=== PATIENT | male | born 1980 ===

== ENCOUNTER 2016-11-25 16:58 | Inpatient (IN) ==
[2016-11-25] MEDS ORDERED: ONDANSETRON 4 MG/2 ML VIAL IV PRN ×2 (17:12→20:11)
[2016-11-25] MEDS ORDERED: PANTOPRAZOLE 40 MG VIAL IV STA (17:12)
--- NOTE | 2016-11-25 17:16 | Emergency Department Note ---
Arrival - Arrival Chief Complaint: Abdominal / Flank Pain ED Nursing Triage Note: c/o abd pain for months. pt had acute eve Mode of Arrival: Stretcher Limitations: No Limitations Source: Patient, RN Notes Reviewed Time Seen by Provider: 11/25/16 17:07 - History of Present Illness HPI Narrative: Patient is a 35-year-old male who is seen today complaining of 6 months of left upper quadrant abdominal pain. Patient denies any nausea vomiting or diarrhea. Last bowel movement was yesterday. Patient denies any blood in stool. He admits to drinking heavily until the last several weeks. Patient denies any surgery. He states that prior to quitting alcohol he was drinking at least 2 pints per day of whiskey. Patient denies any dysuria or urinary frequency. There is no history of hematuria. Nothing makes the pain better or worse. Onset (ago): month(s) (6) Consistency: constant Severity: mild Allergies/Adverse Reactions: Allergies Allergy/AdvReac Type Severity Reaction Status Date / Time No Known Allergies Allergy Verified 05/11/16 06:24 Home Medications: Home Medications Medication Instructions Recorded Confirmed Type Carvedilol [Coreg] 12.5 mg PO BID #60 tablet 04/23/16 11/25/16 Rx Review of System - Review of System 12 point system: reviewed and no additional remarkable complaints except as stated - Review of System Constitutional: Absent: chills, fever Gastrointestinal: Present: abdominal pain. Absent: nausea, vomiting, diarrhea Medical,Surgical,& Family Hx - Medical History Cardio: History of: Hypertension Other: History of: Skin Problems (keloid behind left ear) - Family History Family History: Reports;: Family Diabetes (parents), Family Hypertension ( parents), Family Stroke Denies;: Family Heart Disease - Social History Smoking Status: Smoker, status unknown Frequency of Alcohol Use: Occasionally Type of Drug Use: Marijuana Exam Vital Signs: Vital Signs Temperature 98.7 F 11/25/16 17:01 Pulse Rate 75 11/25/16 17:01 Respiratory Rate 18 11/25/16 17:01 Blood Pressure 141/81 11/25/16 17:01 O2 Sat by Pulse Oximetry 98 11/25/16 17:01 GENERAL: This is a well-nourished well-developed obese male in no apparent distress. VITAL SIGNS: Reviewed HEENT: Head is atraumatic and normocephalic. Pupils are equal round react to light. Extraocular movements are intact. Oropharynx is benign with moist mucous membranes. NECK: Neck is soft and supple without tenderness. There are no masses. There is no lymphadenopathy. LUNGS: Lungs are clear to auscultation. Chest rises symmetrically. There is no chest wall tenderness. CV: Heart is regular rate and rhythm without murmurs rubs or gallops. ABDOMEN: Abdomen is soft, minimal tenderness to palpation of the left upper quadrant without rebound or guarding. There are no abdominal abnormal masses palpated. There is no organomegaly. Bowel sounds are present and active. SKIN: Skin is warm and dry. No rash. EXTREMITIES: Patient has full range of motion without tenderness. There is no pedal edema. NEUROLOGIC: Awake alert and oriented 4. Cranial nerves II through XII are grossly intact. Motor is 5 over 5 in all extremities bilaterally. Course - Consultations Consultation #1: Discussed with Dr. Jose ERVIN. Patient will be admitted to his service. Time: 18:03 Results - Labs Lab Results: I have reviewed the patients labs Labs: Labs performed at [facility] and reviewed by me: CBC: WBCs 13,800, hemoglobin 11.8, hematocrit 34.5, platelet count 74,000 Chemistry: Sodium 143, potassium 2.8, chloride 104, CO2 26.8, BUN 21, creatinine 2.3, alk phos 110, SGOT 62 SGPT 26, glucose 105 Urine: Specific gravity 1.015, pH 6.0, Urine drug screen positive for marijuana - Diagnostic Findings Procedure: Ultrasound: report reviewed by me (Gallbladder ultrasound: Thickened gallbladder wall, sludge in the gallbladder.) Disposition Clinical Impression: Abdominal pain, left upper quadrant, Cholecystitis Case discussed with: patient Disposition: Still a Patient Condition: Stable
[2016-11-25] MEDS ORDERED: PANTOPRAZOLE 40 MG VIAL IV ONE (17:32)
[2016-11-25] MEDS ORDERED: ONDANSETRON 4 MG/2 ML VIAL ONE (17:32)
--- NOTE | 2016-11-25 18:29 | Ultrasound Report ---
Exam: US gallbladder Date:11/25/2016 5:23 PM Comparison:None Indication: Upper abdominal pain Real-time ultrasound images are captured and archived. There is gallbladder wall thickening at 7 mm. There is no cholelithiasis. There is mild sludge in the lumen of the gallbladder. There is a negative sonographic Raya sign. There is no abnormal biliary dilatation. Liver is mildly enlarged. There are mildly increased hepatic parenchymal echoes diffusely compatible with fatty infiltration of the liver. There is hepatopedal flow in the portal vein. The pancreas is obscured by bowel gas. There is no focal right renal abnormality. ORGAN MEASUREMENTS Liver Length:18.6 cm Gallbladder Wall Thickness: 7 mm CBD: 6 mm Right kidney: Length:11.9 cm Width:5.5 cm AP:5.6 cm Impression: Mild sludge in the gallbladder, though no classic shadowing gallstones. Negative sonographic Raya sign. Mild gallbladder wall thickening. Consider chronic cholecystitis. Mild hepatomegaly and mild hepatic steatosis PROCEDURE INTERPRETED AT [facility] DEPARTMENT OF RADIOLOGY Final Report Signed by: Dr. Elizabeth Michelle
[2016-11-25] MEDS ORDERED: ACETAMINOPHEN 325 MG TABLET PO PRN (20:11)
[2016-11-25] MEDS ORDERED: THIAMINE INJ 100 MG, FOLIC ACID INJ 1 MG, MAGNESIUM SULF INJ 2 GM, MULTIVITAMIN INJ 10 ... IV ONE (21:00)
[2016-11-25] MEDS: PIPERACILLIN/TAZOBACTAM 3,375 MG in SODIUM CHLORIDE 0.9% 100 ML IV SCH (21:29)
[2016-11-26] MEDS: PIPERACILLIN/TAZOBACTAM 3,375 MG in SODIUM CHLORIDE 0.9% 100 ML IV SCH ×2 (05:22→13:22)
[2016-11-26 08:10] LABS: Basophils % 0.3 % (0.0-0.8); Eosinophils # 0.3 10*3/uL (0.0-0.87); Eosinophils % 2.8 % (0.00-10.9); Hematocrit 32.6 VOL% (42.0-52.0); Hemoglobin 11.3 GM/DL (14.0-18.0); Immature Granulocytes % 0.6 %; Immature Granulocytes Absolute 0.06 #; Lymphocytes # 1.5 10*3/uL (1.4-4.0); Lymphocytes % 13.6 % (21.2-54.2); Mean Corpuscular HGB Conc 34.7 GM/DL (32-36); Mean Corpuscular Hemoglobin 38 PG (27-34); Mean Corpuscular Volume 110.9 FL (87-102); Monocytes # 0.8 10*3/uL (0.11-0.8); Monocytes % 7.1 % (1.7-12.7); Neutrophils # 8.2 10*3/uL (1.4-7.4); Neutrophils % 75.6 % (38.7-73.9); Red Blood Count 2.94 MC/CUMM (3.8-5.5); Red Cell Distribution Width 14.2 % (9.3-17.3); White Blood Count 10.8 T/CUMM (4-12)
[2016-11-26 08:15] LABS: Platelet Count 73 T/CUMM (130-400)
--- NOTE | 2016-11-26 08:25 | General Surg History&Physical ---
Assessment and Plan - Time spent with patient Time spent with patient: Greater than 30 minutes (1) Abdominal pain, left upper quadrant Status: Acute Assessment and plan: The etiology of this is unclear. I doubt that the symptoms are from his gallbladder. He has been diagnosed before with hepatosplenomegaly and I would suspect that he has had underlying cirrhosis possibly alcoholic hepatitis causing hepatosplenomegaly. We will consult GI for evaluation. Current Visit: Yes (2) Cholecystitis Status: Acute Assessment and plan: She had a thickened gallbladder with no gallstones. This thickening was not accompanied by pain or tenderness or Raya sign. This may be simply related to underlying liver disease such as cirrhosis or alcohol abuse. Current Visit: Yes (3) Jaundice Status: Acute Assessment and plan: He had a bilirubin of 3 on his lab work [facility]. We are rechecking this and rechecking his liver function tests. We will get an evaluation from gastroenterology. Current Visit: Yes History of Present Illness Chief complaint: Abdominal pain History of present illness: Mr. Renee is a 35 year old male Who 4 months has had a mild to moderate abdominal pain. He states that his pain sometimes in his right upper abdomen sometimes in the mid upper abdomen and sometimes in his left upper quadrant. It is been more in his left upper quadrant with anywhere else. He states that sometimes this left upper quadrant pain radiates into his left side. He has had some lower back pain but not a feeling that it is related to his abdominal pain. He says the pain is unaffected by eating and he has not had any changes in appetite or any nausea or vomiting. He had mild right upper quadrant pain which stopped a week or so ago he quit drinking. Prior to a week ago he states that he was drinking 2 pints of liquor a day. He has not had any fever or chills or jaundice. He apparently had an ultrasound showing thickened gallbladder with gallstones but no sonographic Raya sign. He had an enlarged liver and has been diagnosed with hepatosplenomegaly [facility] in the recent past. He has not been diagnosed in the past with cirrhosis. On his lab work at [facility] he had a bilirubin of 3 Home Medications Medication Instructions Recorded Confirmed Type Carvedilol [Coreg] 12.5 mg PO BID #60 tablet 04/23/16 11/25/16 Rx Allergies Allergy/AdvReac Type Severity Reaction Status Date / Time No Known Allergies Allergy Verified 05/11/16 06:24 Medical,Surgical,& Family Hx - Medical History Cardio: History of: Hypertension Other: History of: Skin Problems (keloid behind left ear) - Family History Family History: Reports;: Family Diabetes (parents), Family Hypertension ( parents), Family Stroke Denies;: Family Heart Disease - Social History Smoking Status: Smoker, status unknown Frequency of Alcohol Use: Frequently Type of Drug Use: Marijuana Exam - Constitutional Vitals: Period Temp Pulse Resp BP Sys/Kimbrough Pulse Ox Last 24 Hr 98.4 F-99.0 F 72-84 14-20 123-176/55-98 93-98 General appearance: no acute distress, morbidly obese - Eye Eye exam: Absent: scleral icterus Pupils: Present: GEOFF - ENT Mouth exam: Present: normal voice - Neck Neck exam: Present: trachea midline. Absent: tenderness - Respiratory Respiratory exam: Present: clear to auscultation bilaterally. Absent: accessory muscle use - Cardiovascular Cardiovascular exam: Present: RRR - GI/Abdominal GI/Abdominal exam: Present: normal bowel sounds, soft. Absent: distended, guarding, mass, Raya's sign, tenderness, rebound - Extremities Exam Extremities exam: Absent: edema - Neurological Exam Neurological exam: Present: alert, oriented X3. Absent: motor sensory deficit Speech: Present: normal - Skin Skin exam: Present: normal color - Constitutional Constitutional: Absent: anorexia, chills, fever(s), weight loss - EENT Nose, mouth and throat: Absent: dysphagia - Cardiovascular Cardiovascular: Absent: chest pain at rest, chest pain with activity, dyspnea, dyspnea on exertion, syncope - Respiratory Respiratory: Absent: dyspnea, hemoptysis, dyspnea on exertion - Gastrointestinal Gastrointestinal: Present: abdominal pain. Absent: bloating, cramping, diarrhea , hematemesis, hematochezia, nausea, vomiting, jaundice - Genitourinary Genitourinary: Absent: hematuria - Musculoskeletal Musculoskeletal: Present: back pain - Neurological Neurological: Absent: focal weakness, syncope - Endocrine Endocrine: Absent: polyuria Hematologic/Lymphatic: Absent: easy bleeding, easy bruising Results - Labs CBC & BMP: 11/26/16 07:44 Lab Results: I have reviewed the past 24 hour labs - Diagnostic Findings Procedure: Ultrasound: report reviewed by me
[2016-11-26 08:42] LABS: Albumin 3.2 G/DL (3.4-5.0); Bilirubin,Total 2.2 MG/DL (0.2-1.0); Osmolality,Calculated 285.1 MOS/KG (273-304); Total Protein 6.7 G/DL (6.4-8.3)
[2016-11-26 08:56] LABS: Platelet Estimate Decreased
[2016-11-26] MEDS: PANTOPRAZOLE 40 MG TABLET PO SCH ×2 (11:18→11:27)
--- NOTE | 2016-11-26 13:01 | Gastrointestinal Consult Note ---
Assessment and Plan (1) Alcoholic hepatitis without ascites Status: Acute Assessment and plan: This patient has a history of drinking 1/5 a day of whiskey for the last 2 years and given his liver parameters with a high MCV and low platelet level is likely given himself some low-grade cirrhosis versus severe alcoholic hepatitis. We will follow the patient up in 6 weeks in the office to see if any of these parameters have changed significantly. The good news is that he has discontinued drinking approximately 2 weeks ago and has not developed delirium tremens. If liver function tests looked the same or better than today he can certainly be discharged home tomorrow. I will write him a prescription for the pantoprazole to take but his main concern should be a low sodium diet and remaining abstinent from alcohol entirely. He does not require upper endoscopy at this time, it is LFTs remain elevated in 6 weeks will likely do a liver biopsy to confirm the diagnosis of alcoholic cirrhosis. I have cut back his Tylenol dosing to 500 mg 4 times daily. He does not require any antibiotics , or narcotics for his present condition. The patient uses occasional THC at home, he should be encouraged to lose some weight. 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 He is not an NSAID user. He is not having any nausea or vomiting or excessive pain. He does not require upper endoscopy. He has never had a bleeding/hematemesis episode. Current Visit: Yes (3) Jaundice Status: Acute Assessment and plan: Patient's bilirubin was up to 3.4 yesterday and is now down to 2.2. I suspect it will continue to drop over time provided he remains abstinent from alcohol intake. It may reach a plateau at some point given that he may have cirrhosis underlying. The patient was educated that he absolutely has to stop drinking at this point. Current Visit: Yes (4) Peripheral edema Status: Acute Assessment and plan: The patient has peripheral edema and is noted to have a BNP of 1222, given the fact that he likely does not have congestive heart failure and still concerned that he may have an alcoholic cardiomyopathy that is resulted in this number. He is advised to eat a low sodium diet and we will recheck his brain natruretic peptide level tomorrow, to see if this is improved. The patient does have hypertension that has been difficult to control, may consider low-dose diuretics (Maxide). Current Visit: Yes History of Present Illness Chief complaint: Alcoholic hepatitis with jaundice and gallbladder sludge, prob. gastritis History of present illness: Mr. Renee is a 35 year old male who was sent over by Morelia eSaman, nurse practitioner at the [facility] concerning his bilirubin which is found to be elevated as well as thickening of his gallbladder likely due to edema with his elevated BNP which have been noted to be as high as 1222 on at 2017--sludge was noted in the gallbladder but there was no evidence of ductal dilatation or stones per se. Gallbladder wall was thickened to 7 mm in our institution. He had a sonographic negative Raya sign. The patient states that he had discontinued drinking approximately 2 weeks ago but prior to that for the last 2 years he has been drinking about 1/5 of whiskey per day. Not surprisingly, his bilirubin has increased to 3.4 yesterday with an AST of 62 and ALT of 26 and an alkaline phosphatase of 110. These have improved with hydration over the evening time and his current bilirubin is 2.2 with an AST of 52, ALT of 23, and alkaline phosphatase of 112. He is having no right upper quadrant pain now but notes this was only low-grade yesterday. He is having some slight left upper quadrant pain possibly secondary to alcoholic gastritis. He does not have reflux symptoms. He does not have diarrhea or constipation. His creatinine was elevated today at 2.2, but his potassium is somewhat low at 3.0. He is positive for some THC. 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 Again this patient stopped drinking approximately 10-14 days ago and has not had any delirium tremens or other issues aside from the darkening of the urine which is improved at this point. He is worried about having had developed cirrhosis and his platelet level is 73 with an MCV that is elevated at 110.9 both consistent with cirrhosis. We will have to see how these improve over time the further from alcohol he gets. He has never vomited blood and he does not have a history of melena, constipation or diarrhea or rectal bleeding. He has never used IV drugs. His hepatitis A, B, and C levels at the [facility] wall negative from 11/25/16. Home Medications Medication Instructions Recorded Confirmed Type Carvedilol [Coreg] 12.5 mg PO BID #60 tablet 04/23/16 11/25/16 Rx Allergies Allergy/AdvReac Type Severity Reaction Status Date / Time No Known Allergies Allergy Verified 05/11/16 06:24 Medical,Surgical,& Family Hx - Medical History Cardio: History of: Hypertension Other: History of: Skin Problems (keloid behind left ear) - Family History Family History: Reports;: Family Diabetes (parents), Family Hypertension ( parents), Family Stroke Denies;: Family Heart Disease - Social History Smoking Status: Smoker, status unknown Frequency of Alcohol Use: Frequently Type of Drug Use: Marijuana Review of systems: Constitutional: Denies fever, chills, nausea, and vomiting Eyes: Denies dry eyes, but has had some scleral icterus HENT: Denies headaches Cardiovascular: Denies acute chest pain and claudication Respiratory: Denies shortness of breath, wheezing, and difficulty breathing, denies cough Gastrointestinal: As noted in the HPI Genitourinary: Denies dysuria and hematuria Neurologic: Denies vision loss, and loss of sensation Musculoskeletal: This patient has had some joint swelling, joint stiffness, and muscular weakness Psychiatric: Mild depression but no yosi symptoms Heme-Lymph: Denies easy bruising, lymph node enlargement or tenderness, night sweats, excessive bleeding Allergies-immunologic: Denies pruritus and rhinorrhea Exam - Constitutional Vitals: Period Temp Pulse Resp BP Sys/Kimbrough Pulse Ox Last 24 Hr 98.4 F-99.0 F 72-84 14-20 123-176/55-98 93-98 Exam: Constitutional: Well-developed, well-nourished, morbidly obese [place] male who is alert, and in no acute distress Head and face: Head: Normocephalic atraumatic Eyes: Conjunctiva without injection, no gross scleral icterus, pupils equal and round bilaterally Ears: Intact to conversation in both ears Nose: External appearance is normal, nares patent Mouth: Oral mucous membranes moist without erythema dentition noted to be without erosion Neck: Normal appearance, no masses or tenderness, trachea midline Thyroid: Gland midline and appropriate size for age Respiratory: Normal respiratory effort, clear to auscultation without wheezes, rhonchi or rales Cardiovascular: Regular rate and rhythm, normal S1, S2, the exam is without rubs, murmurs or gallops. Gastrointestinal: Very mild left upper quadrant tenderness to deep palpation, normal active bowel sounds, tone normal without rigidity or guarding , no masses present, no hepatomegaly, no spleen tip felt. No caput medusa, no gross ascites. No rectal exam obtained. Lymphatic: Neck without adenopathy, axilla without lymphadenopathy present Musculoskeletal: Right and left lower extremities with evidence of bilateral +1 edema Skin and subcutaneous tissue: No rashes or ulcerations noted, with slightly increased skin turgor, digits and nails without clubbing/cyanosis/deformities. Neurologic: The patient is grossly oriented to person place and time, cranial nerves show tongue movements are normal with normal tongue extrusion midline, light touch sensation is intact. Psychiatric: No hallucinations or delusions are present, does not appear depressed Results - Labs CBC & BMP: 11/26/16 07:44 11/26/16 07:44
[2016-11-26 13:23] LABS: % Iron Saturation 13.8 % (18-50); Bilirubin,Direct 1.09 MG/DL (0.0-0.20)
[2016-11-26] MEDS: ACETAMINOPHEN 500 MG TABLET PO PRN (22:19)
[2016-11-27 04:44] LABS: Albumin 3.1 G/DL (3.4-5.0); Bilirubin,Direct 0.93 MG/DL (0.0-0.20); Bilirubin,Indirect 1.4 MG/DL (0.0-1.0); Bilirubin,Total 2.3 MG/DL (0.2-1.0); Total Protein 6.4 G/DL (6.4-8.3)
[2016-11-27] MEDS: PANTOPRAZOLE 40 MG TABLET PO SCH (08:21)
--- NOTE | 2016-11-27 10:26 | General Surgery Progress Note ---
Assessment and Plan (1) Abdominal pain, left upper quadrant Status: Acute Assessment and plan: The etiology of this is unclear. I doubt that the symptoms are from his gallbladder. He has been diagnosed before with hepatosplenomegaly and I would suspect that he has had underlying cirrhosis possibly alcoholic hepatitis causing hepatosplenomegaly. We will consult GI for evaluation. 11/27: I appreciate the input from gastroenterology. This appears to be more of an underlying medical cause for his elevated liver function tests. I do not think that this represents acute cholecystitis. We will monitor his liver test and probably discharge him home tomorrow. If it is okay with GI we will discharge him home and have him follow-up with GI. I will be happy to see him again in the future. Current Visit: Yes (2) Cholecystitis Status: Acute Assessment and plan: She had a thickened gallbladder with no gallstones. This thickening was not accompanied by pain or tenderness or Raya sign. This may be simply related to underlying liver disease such as cirrhosis or alcohol abuse. Current Visit: Yes (3) Jaundice Status: Acute Assessment and plan: He had a bilirubin of 3 on his lab work [facility]. We are rechecking this and rechecking his liver function tests. We will get an evaluation from gastroenterology. Current Visit: Yes Subjective Patient reports: Present: feels better, pain is less. Absent: nausea, vomiting , fever Exam - Constitutional Vitals: Period Temp Pulse Resp BP Sys/Kimbrough Pulse Ox Last 24 Hr 97.1 F-99.4 F 62-88 16-20 108-168/60-102 93-96 General appearance: no acute distress - Head Head exam: Present: normocephalic - Eye Eye exam: Absent: scleral icterus - GI/Abdominal GI/Abdominal exam: Present: soft. Absent: distended, Raya's sign, tenderness , rebound Results - Labs CBC & BMP: 11/26/16 07:44 11/26/16 07:44 Lab Results: I have reviewed the past 24 hour labs Specialty Discharge - Follow Up or Referrals Follow up with: Jet Valero MD [Physician] - (CALL OFFICE ON MONDAY TO SCHEDULE A 6 WEEK FOLLOW UP APPOINTMENT)
--- NOTE | 2016-11-27 11:48 | Gastrointestinal Progress Note ---
Assessment and Plan (1) Alcoholic hepatitis without ascites Status: Acute Assessment and plan: This patient has a history of drinking 1/5 a day of whiskey for the last 2 years and given his liver parameters with a high MCV and low platelet level is likely given himself some low-grade cirrhosis versus severe alcoholic hepatitis. We will follow the patient up in 6 weeks in the office to see if any of these parameters have changed significantly. The good news is that he has discontinued drinking approximately 2 weeks ago and has not developed delirium tremens. If liver function tests looked the same or better than today he can certainly be discharged home tomorrow. I will write him a prescription for the pantoprazole to take but his main concern should be a low sodium diet and remaining abstinent from alcohol entirely. He does not require upper endoscopy at this time, it is LFTs remain elevated in 6 weeks will likely do a liver biopsy to confirm the diagnosis of alcoholic cirrhosis. I have cut back his Tylenol dosing to 500 mg 4 times daily. He does not require any antibiotics , or narcotics for his present condition. The patient uses occasional THC at home, he should be encouraged to lose some weight. 11/27/16--I am not really sure if we can provide any further help here in the hospital, the patient needs to maintain his sobriety and can follow-up in my office in 6 weeks to see how he is doing. He does appear to have a low-grade cirrhosis, and if these numbers do not change significantly in 6 weeks we can certainly consider doing a liver biopsy to confirm this and other tests to work this patient up. I will make him a follow-up appointment for that period of time. He can be discharged home at this time from my standpoint. Aside from maintaining sobriety the patient should observe a low-sodium low-fat diet to help him lose some weight. I have written prescriptions for Dyazide 37.5/25 mg 1 p.o. daily, K Dur 20 mEq 1 p.o. daily and pantoprazole 40 mg 1 p.o. every 30 minutes prior to suppertime each day as well. These been left in the front of the chart. If the patient's magnesium level is low tomorrow would consider adding slo-mag to his medication regimen. This is usually 64 mg twice daily. 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 He is not an NSAID user. He is not having any nausea or vomiting or excessive pain. He does not require upper endoscopy. He has never had a bleeding/hematemesis episode. 11/27/16--A prescription for pantoprazole has been left for the patient, he can take this at home to help with left upper quadrant tenderness. His probable alcoholic gastritis should get better as he continues to heal off the toxic irritant to his stomach. Current Visit: Yes (3) Jaundice Status: Acute Assessment and plan: Patient's bilirubin was up to 3.4 yesterday and is now down to 2.2. I suspect it will continue to drop over time provided he remains abstinent from alcohol intake. It may reach a plateau at some point given that he may have cirrhosis underlying. The patient was educated that he absolutely has to stop drinking at this point. 11/27/16--The patient's bilirubin has been stable with around 2.2-2.3, and I suspect this is his baseline. I doubt the removal of his gallbladder is going to help much, we need to see how much better his liver function tests will get with his sobriety, hence the follow-up in 6 weeks. Thank you for this interesting consult I will be signing off at this time. Current Visit: Yes (4) Peripheral edema Status: Acute Assessment and plan: The patient has peripheral edema and is noted to have a BNP of 1222, given the fact that he likely does not have congestive heart failure and still concerned that he may have an alcoholic cardiomyopathy that is resulted in this number. He is advised to eat a low sodium diet and we will recheck his brain natruretic peptide level tomorrow, to see if this is improved. The patient does have hypertension that has been difficult to control, may consider low-dose diuretics (Maxide). 11/27/16--given this patient's hypertension I am going to go ahead and start him on some Dyazide which should also help him out with his peripheral edema. His BNP is improved today. His alcoholic cardiomyopathy should improve as well with time. I have written him for some K Dur were which hopefully will supplement his potassium level which seems to be low. I am suspicious that he may have low magnesium as he is alcoholic. We will check this before he goes home tomorrow. If magnesium is low would suggest adding Slow-Mag 64 mg to his medication list twice daily. Current Visit: Yes Gastroenterology - PN: Subj Interval history: The patient is not available for examination as he is out wandering the hallways. I saw him earlier on the hallways and he appeared to be doing adequate at that time. Exam (Progress Note) - Constitutional Vitals: Period Temp Pulse Resp BP Sys/Kimbrough Pulse Ox Last 24 Hr 97.1 F-99.4 F 62-88 16-20 108-168/60-102 93-96 Exam: The patient is not available for examination but liver function tests look marginally better. He needs to maintain his abstinence and observe a low- sodium low-fat diet Results - Labs CBC & BMP: 11/26/16 07:44 11/26/16 07:44 Specialty Discharge - Follow Up or Referrals Follow up with: Jet Valero MD [Physician] - (CALL OFFICE ON MONDAY TO SCHEDULE A 6 WEEK FOLLOW UP APPOINTMENT)
[2016-11-27] MEDS: POTASSIUM CHLORIDE 20 MEQ TABLET PO SCH (12:19)
[2016-11-27] MEDS: TRIAMTERENE/HCTZ 37.5-25 MG CAPSULE PO SCH (12:19)
[2016-11-27] MEDS: ACETAMINOPHEN 500 MG TABLET PO PRN (21:09)
[2016-11-28 06:45] LABS: Calcium 7.6 MG/DL (8.5-10.1); Magnesium 1.4 MG/DL (1.8-2.4); Osmolality,Calculated 285.8 MOS/KG (273-304); Potassium 3.1 MMOL/L (3.5-5.1)
[2016-11-28 06:47] LABS: Albumin 3.3 G/DL (3.4-5.0); Bilirubin,Direct 0.86 MG/DL (0.0-0.20); Bilirubin,Indirect 1.1 MG/DL (0.0-1.0); Total Protein 6.9 G/DL (6.4-8.3)
[2016-11-28] MEDS: POTASSIUM CHLORIDE 20 MEQ TABLET PO SCH (08:33)
[2016-11-28] MEDS: TRIAMTERENE/HCTZ 37.5-25 MG CAPSULE PO SCH (08:34)
[2016-11-28] MEDS: ACETAMINOPHEN 500 MG TABLET PO PRN (08:34)
[2016-11-28] MEDS: PANTOPRAZOLE 40 MG TABLET PO SCH (08:34)
--- NOTE | 2016-11-28 09:16 | Discharge Summary ---
Hospital Course - Hospital Course Hospital Course: Patient is a 35-year-old male admitted with abdominal pain with elevated bilirubin for possible cholecystitis from [facility] referral. After evaluation, it was determined the patient had alcoholic hepatitis. Gastroenterology consultation was obtained and input appreciated. Patient was initiated on Protonix p.o. daily for prophylaxis for alcoholic gastritis, potassium supplement daily, and new blood pressure medicine for elevated blood pressure. His blood pressure was elevated and the new medication was initiated as well as his home medications restarted (initially reported coreg, but stated he took losartan 50mg PO daily most recently) with more reasonable control. His provided education on monitoring his blood pressure and advised to follow- up with his primary care doctor for close follow-up and medication adjustment. He was also found to be hypokalemic and 1 of the medications he was started on her blood pressure was potassium sparing as well as a potassium replacement. His potassium is corrected prior to departure and he was advised to follow-up with his primary care physician within the week to continue to monitor. He was provided with education for a low-sodium diet, to limit acetaminophen, and the need for weight loss, avoiding alcohol, and the necessity for medical follow- up. He expressed understanding of the necessity to avoid future complications. Hepatitis panels from the [facility] were negative. He was discharged home in good condition with recommendation to follow-up with Dr. justin blum as below. - Time spent with patient Time with patient DS: Greater than 30 minutes Diagnosis - Discharge Diagnosis (1) Hypertension Status: Acute (2) Obesity Status: Acute (3) Cannabis abuse Status: Acute (4) Hepatomegaly Status: Acute (5) Alcoholic hepatitis without ascites Status: Acute (6) Jaundice Status: Acute (7) Peripheral edema Status: Acute (8) Hypokalemia Status: Acute Specialty Discharge - Follow Up or Referrals Follow up with: Rocael Garcia III., MD [Physician] - (CALL NEEDED) Jet Valero MD [Physician] - (Dr. Valero office will call you about your appointment in about 6 weeks. If you have any questions or concerns please call [phone]) Discharge Plan - Discharge Data Disposition: Disch To Home/Self Care Condition at Discharge: Stable Discharge Diet: other (low sodium, low fat diet) Contact your physician if you experience:: fever over 101, Redness or swelling ( yellowing of skin/eyes), Nausea/Vomiting, Shortness of breath, pain uncontrolled by pain medications - Discharge Medications New Potassium Chloride Cap/Tab [K Dur] 20 meq PO DAILY tablet Pantoprazole Tab [Protonix Tab] 40 mg PO DAILY tablet Triamterene/Hctz 37.5-25 Cap [Dyazide] 1 capsule PO DAILY capsule Continue Carvedilol [Coreg] 12.5 mg PO BID #60 tablet - Follow Up or Referral Follow Up: Rocael Garcia III., MD [Physician] - (CALL NEEDED) Jet Valero MD [Physician] - (Dr. Valero office will call you about your appointment in about 6 weeks. If you have any questions or concerns please call [phone]) - Forms/Instructions Instructions: Cirrhosis (DC), Low Fat Diet (DC), How to Take a Blood Pressure (DC), DASH Eating Plan (DC), Jaundice (DC) Additional Discharge Instructions: 1. Check blood pressure daily and record. F/ u [facility] for blood pressure check and potassium check in 3-5 days. 2. Avoid alcohol use. 3. Avoid acetaminophen use. 4. Recommend weight loss. Exam - Constitutional Vitals: Period Temp Pulse Resp BP Sys/Kimbrough Pulse Ox Last 24 Hr 97.5 F-99.1 F 71-88 18-20 125-159/60-96 92-97 General appearance: no acute distress - Respiratory Respiratory exam: Present: clear to auscultation bilaterally - Cardiovascular Cardiovascular exam: Present: regular rate and rhythm - GI/Abdominal GI/Abdominal exam: Present: normal bowel sounds, tenderness (minimal epigastric tenderness), soft. Absent: distended - Neurological Exam Neurological exam: Present: alert, oriented X3 - Psychiatric Psychiatric exam: Present: normal affect, normal mood Discharge Results Labs on day of discharge: Labs from last 24 hours 11/28/16 11/28/16 05:33 05:33 Sodium 144 Potassium 3.1 L Chloride 104 Carbon Dioxide 34 H Anion Gap 9.1 BUN 12 Creatinine 1.30 GFR Calculation 93 BUN/Creatinine Ratio 9.00 Glucose 91 Calculated Osmolality 285.8 Calcium 7.6 L Magnesium 1.4 L Total Bilirubin 2.00 H Direct Bilirubin 0.860 H Indirect Bilirubin 1.1 H AST 52 H ALT 25 Alkaline Phosphatase 115 Total Protein 6.9 Albumin 3.3 L - Imaging and Cardiology Procedure: Ultrasound: report reviewed by me (gallbladder) - Additional Comments Transfer chart from [facility] reviewed DS: Provider Date of admission: 11/25/16 17:56 Primary care physician: Wetzelaleja Broderick MD Attending physician on admission: Rocael Garcia III., Consults: 11/26/16 08:29 Consult to Physician [CONS] Routine Comment: Consulting Provider: Jet Valero Consulting Provider Notified: Yes Consult to Specialist Group: Gastroenterology When should Consulting Provider be notified: Now Person Notified: Dr. Valero Date Notified: 11/26/16 Time Notified: 08:34 Discharging clinician: Shalini Amaya PA-C
[2016-11-28] MEDS ORDERED: CARVEDILOL 12.5 MG TABLET PO SCH (09:37)
[2016-11-28] MEDS ORDERED: POTASSIUM CHLORIDE 20 MEQ TABLET PO ONE (09:38)
[2016-11-28] MEDS ORDERED: LOSARTAN 50 MG TABLET PO SCH (10:00)
--- NOTE | 2016-11-28 16:16 | Gastrointestinal Progress Note ---
Assessment and Plan (1) Alcoholic hepatitis without ascites Status: Acute Assessment and plan: This patient has a history of drinking 1/5 a day of whiskey for the last 2 years and given his liver parameters with a high MCV and low platelet level is likely given himself some low-grade cirrhosis versus severe alcoholic hepatitis. We will follow the patient up in 6 weeks in the office to see if any of these parameters have changed significantly. The good news is that he has discontinued drinking approximately 2 weeks ago and has not developed delirium tremens. If liver function tests looked the same or better than today he can certainly be discharged home tomorrow. I will write him a prescription for the pantoprazole to take but his main concern should be a low sodium diet and remaining abstinent from alcohol entirely. He does not require upper endoscopy at this time, it is LFTs remain elevated in 6 weeks will likely do a liver biopsy to confirm the diagnosis of alcoholic cirrhosis. I have cut back his Tylenol dosing to 500 mg 4 times daily. He does not require any antibiotics , or narcotics for his present condition. The patient uses occasional THC at home, he should be encouraged to lose some weight. 11/27/16--I am not really sure if we can provide any further help here in the hospital, the patient needs to maintain his sobriety and can follow-up in my office in 6 weeks to see how he is doing. He does appear to have a low-grade cirrhosis, and if these numbers do not change significantly in 6 weeks we can certainly consider doing a liver biopsy to confirm this and other tests to work this patient up. I will make him a follow-up appointment for that period of time. He can be discharged home at this time from my standpoint. Aside from maintaining sobriety the patient should observe a low-sodium low-fat diet to help him lose some weight. I have written prescriptions for Dyazide 37.5/25 mg 1 p.o. daily, K Dur 20 mEq 1 p.o. daily and pantoprazole 40 mg 1 p.o. every 30 minutes prior to suppertime each day as well. These been left in the front of the chart. If the patient's magnesium level is low tomorrow would consider adding slo-mag to his medication regimen. This is usually 64 mg twice daily. 11/28/16--the patient's potassium is 3.1 and I have written him for some K dur to be given as an outpatient and I do not that his magnesium level is low at 1.4 , we can replace the slowly over time using Slow-Mag which should produce less diarrhea for the patient. Will write a prescription for Slow-Mag 64 mg twice daily. The patient is to be reminded to take a low-sodium low-fat low lactose diet. His other prescription safari been written as noted in the segment just above this. The nurses aware that these are in the front of the chart. 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 He is not an NSAID user. He is not having any nausea or vomiting or excessive pain. He does not require upper endoscopy. He has never had a bleeding/hematemesis episode. 11/27/16--A prescription for pantoprazole has been left for the patient, he can take this at home to help with left upper quadrant tenderness. His probable alcoholic gastritis should get better as he continues to heal off the toxic irritant to his stomach. 11/28/16--Again, this patient likely has toxic gastritis as the cause for his left upper quadrant pain. He is doing fairly well at this time and this pain is minimal. 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 Current Visit: Yes (3) Jaundice Status: Acute Assessment and plan: Patient's bilirubin was up to 3.4 yesterday and is now down to 2.2. I suspect it will continue to drop over time provided he remains abstinent from alcohol intake. It may reach a plateau at some point given that he may have cirrhosis underlying. The patient was educated that he absolutely has to stop drinking at this point. 11/27/16--The patient's bilirubin has been stable with around 2.2-2.3, and I suspect this is his baseline. I doubt the removal of his gallbladder is going to help much, we need to see how much better his liver function tests will get with his sobriety, hence the follow-up in 6 weeks. Thank you for this interesting consult I will be signing off at this time. 11/28/16--His bilirubin is essentially unchanged. I hope that this has improved when he was able to follow-up as an outpatient--he will be following up in 6 weeks. Abstinence is emphasized. Thank you very much for this interesting consult will sign off at this time. Current Visit: Yes (4) Peripheral edema Status: Acute Assessment and plan: The patient has peripheral edema and is noted to have a BNP of 1222, given the fact that he likely does not have congestive heart failure and still concerned that he may have an alcoholic cardiomyopathy that is resulted in this number. He is advised to eat a low sodium diet and we will recheck his brain natruretic peptide level tomorrow, to see if this is improved. The patient does have hypertension that has been difficult to control, may consider low-dose diuretics (Maxide). 11/27/16--given this patient's hypertension I am going to go ahead and start him on some Dyazide which should also help him out with his peripheral edema. His BNP is improved today. His alcoholic cardiomyopathy should improve as well with time. I have written him for some K Dur were which hopefully will supplement his potassium level which seems to be low. I am suspicious that he may have low magnesium as he is alcoholic. We will check this before he goes home tomorrow. If magnesium is low would suggest adding Slow-Mag 64 mg to his medication list twice daily. 11/28/16--as noted above. Current Visit: Yes Gastroenterology - PN: Subj Interval history: Mr. Renee got his potassium this morning and this was noted to be 1.4 which is fairly low. I have gone ahead and written him a prescription for Slow-Mag which should correct this problem over time. The potassium uptake should improve with improved magnesium level. Magnesium is low of course secondary to his alcoholism. These electrolyte derangements will take time to fix. In my opinion he can go home right now. Exam (Progress Note) - Constitutional Vitals: Period Temp Pulse Resp BP Sys/Kimbrough Pulse Ox Last 24 Hr 97.5 F-99.1 F 71-81 18-20 125-159/60-96 92-98 General appearance: no acute distress - Head Head exam: Present: normocephalic - Eye Eye exam: Present: EOMI Pupils: Present: GEOFF - Respiratory Respiratory exam: Present: clear to auscultation bilaterally. Absent: rhonchi, stridor, wheezes - Cardiovascular Cardiovascular exam: Present: regular rate and rhythm - GI/Abdominal GI/Abdominal exam: Present: normal bowel sounds, tenderness (Mostly in the left upper abdomen), soft. Absent: distended, guarding, rebound - Extremities Exam Extremities exam: Present: edema (He does still have some bilateral lower extremity swelling.) - Neurological Exam Neurological exam: Present: alert, oriented X3 - Psychiatric Psychiatric exam: Present: normal affect, normal mood - Skin Skin exam: Present: warm Results - Labs CBC & BMP: 11/26/16 07:44 11/28/16 05:33 Specialty Discharge - Follow Up or Referrals Follow up with: Jet Valero MD [Physician] - (Dr. Valero office will call you about your appointment in about 6 weeks. If you have any questions or concerns please call [phone])
[2016-11-28 16:28] VITALS: BP 143/81
[2016-11-28 17:01] LABS: Calcium 8.2 MG/DL (8.5-10.1); Osmolality,Calculated 279.3 MOS/KG (273-304); Potassium 3.3 MMOL/L (3.5-5.1)
== END 2016-11-28 17:45 | disposition home or self-care (01) | DRG 433 ==
LOC: N.ED 16:58 → N.EDINP 17:56 → N.3E 19:06
PROVIDERS: ADMIT Surgery; ATTEND Surgery